=== PATIENT | male | born 1960 | race Asian ===

== ENCOUNTER 2025-03-02 11:23 | Inpatient (IN) | payer OTHER ==
[~2025-03-02] VITALS: Ht 167.6 cm; Wt 70.9 kg
[2025-03-02] MEDS ORDERED: 0.9% SODIUM CHLORIDE 10 ML SYRINGE IVP PRN (12:15)
[2025-03-02 12:43] LABS: PLATELET COUNT (AUTO) 461 K/uL (150-450); RED BLOOD CELL COUNT(AUTO) 3.78 MIL/uL (4.50-5.90); RED CELL DISTRIBUTION WIDTH 16.2 % (11.5-14.5); WHITE BLOOD COUNT (AUTO) 17.7 K/uL (4.5-11.0)
[2025-03-02] MEDS: SODIUM CHLORIDE 0.9% 2,150 ML IV ONE (12:44)
[2025-03-02] MEDS: CefTRIAXone 1 GM/DEXTROSE 50 ML IV ONE (12:49)
[2025-03-02 12:51] LABS: CALCIUM, TOTAL 8.6 mg/dL (8.8-10.5); CREATININE 0.78 mg/dL (0.60-1.30); GLOMERULAR FILTR. RATE CALC > 60 mL/min (>60); GLUCOSE,RANDOM 128 mg/dL (70-110); SODIUM SERUM 135 mmol/L (136-145); UREA NITROGEN, BLOOD 20 mg/dL (7-18)
[2025-03-02 12:59] LABS: TROPONIN I-HIGH SENSITIVITY 11 ng/L (<76)
[2025-03-02 13:00] LABS: APPEARANCE,URINE HAZY (CLEAR); GLUCOSE, URINE (UA) NEGATIVE (NEGATIVE); LEUKOCYTE ESTERASE ,URINE MODERATE (NEGATIVE); NITRATE,URINE NEGATIVE (NEGATIVE); OCCULT BLOOD,URINE LARGE (NEGATIVE); SPECIFIC GRAVITIY, URINE 1.036 (1.003-1.030)
[2025-03-02 13:01] LABS: LACTIC ACID 1.1 mmol/L (0.4-2.0)
[2025-03-02 13:03] LABS: RBC MORPHOLOGY COMMENT NORMAL RBC MORPH
[2025-03-02 13:06] LABS: SQUAMOUS EPITHELIAL CELL,UR Few /LPF (None Seen)
[2025-03-02] MEDS ORDERED: MEMA10TA24 PO (13:23)
[2025-03-02] MEDS ORDERED: OXYC10TA59 PO (13:23)
[2025-03-02] MEDS ORDERED: ACET-3385 PO (13:23)
[2025-03-02] MEDS ORDERED: METO25 PO (13:23)
[2025-03-02] MEDS ORDERED: CEFT1VIA65 IV (13:23)
[2025-03-02] MEDS ORDERED: DONE-51 PO (13:23)
[2025-03-02] MEDS ORDERED: vancomycin IVPB (13:23)
[2025-03-02] MEDS ORDERED: ATOR40TA28 PO (13:23)
[2025-03-02] MEDS ORDERED: INSU100V SQ (13:23)
[2025-03-02] MEDS ORDERED: DOCU-385 PO (13:23)
[2025-03-02 16:06] VITALS: BP 119/65; PULSE 81; RESP 18; O2SAT 97
[2025-03-02] MEDS ORDERED: MORPHINE SULFATE 2 MG/ML SYRINGE IVP PRN (18:30)
[2025-03-02] MEDS ORDERED: HYDROCODONE/ACETAMINOPHEN 5-325 MG TABLET PO PRN (18:30)
[2025-03-02] MEDS ORDERED: MAGNESIUM HYDROXIDE SUSPENSION 30 ML UDCUP PO PRN (18:30)
[2025-03-02] MEDS ORDERED: ONDANSETRON HCL 4 MG/2 ML VIAL IVP PRN (18:30)
[2025-03-02] MEDS ORDERED: IPRATROPIUM BROMIDE 0.5 MG/2.5 ML NEB SOLUTION NEB PRN (18:30)
[2025-03-02] MEDS ORDERED: BISACODYL 10 MG RECTAL RECTAL SUPPOSITORY PR PRN (18:30)
[2025-03-02] MEDS ORDERED: ACETAMINOPHEN 325 MG TABLET PO PRN (18:30)
[2025-03-02] MEDS ORDERED: INSULIN LISPRO 100 UNITS/ML SQ PRN (18:30)
[2025-03-02] MEDS ORDERED: ZOLPIDEM TARTRATE 5 MG TABLET PO PRN (18:30)
[2025-03-02] MEDS ORDERED: ALBUTEROL SULFATE 2.5 MG/0.5 ML NEB SOLUTION NEB PRN (18:30)
[2025-03-02] MEDS ORDERED: DEXTROSE 50%-WATER 25 GM/50 ML SYRINGE IVP PRN (18:30)
[2025-03-02] MEDS ORDERED: MORPHINE SULFATE 4 MG/ML VIAL IVP PRN (18:45)
[2025-03-02] MEDS ORDERED: [UNRECOGNIZED DRUG - OTHER] IV SCH (20:00)
[2025-03-02] MEDS ORDERED: VANCOMYCIN IV SCH (20:00)
[2025-03-02] MEDS ORDERED: SODIUM CHLORIDE 0.9% 500 ML IV ONE (20:20)
[2025-03-02] MEDS: VANCOMYCIN 750 MG/WATER(PEG) 150 ML IV SCH (20:26)
[2025-03-02] MEDS: ACETAMINOPHEN 325 MG TABLET PO SCH (20:41)
[2025-03-02] MEDS: MEMANTINE HCL 10 MG TABLET PO SCH (20:41)
[2025-03-02] MEDS: OxyCODONE HCL 10 MG ER TABLET PO SCH (20:41)
[2025-03-02 21:00] VITALS: BP 136/64; PULSE 93; RESP 20; TEMP 100.4; O2SAT 97
[2025-03-02] MEDS: METOPROLOL TARTRATE 25 MG TABLET PO SCH (21:41)
[2025-03-02 22:41] LABS: GLUCOMETER DEV NAME(LOC) 4E.2; GLUCOSE,POINT OF CARE 122 MG/DL (70-110)
[2025-03-03] MEDS: HEPARIN SODIUM,PORCINE 5,000 UNITS/ML VIAL SQ SCH
[2025-03-03 03:07] VITALS: BP 111/60; PULSE 83; RESP 18; TEMP 98.4; O2SAT 99
[2025-03-03 06:15] LABS: GLUCOMETER DEV NAME(LOC) 4E.2; GLUCOSE,POINT OF CARE 126 MG/DL (70-110)
[2025-03-03 08:58] VITALS: BP 133/66; PULSE 92; RESP 18; TEMP 98.8; O2SAT 100
[2025-03-03] MEDS ORDERED: CefTRIAXone SODIUM 1 GM/VIAL IV SCH (09:00)
[2025-03-03] MEDS: PANTOPRAZOLE SODIUM 40 MG DR TABLET PO SCH (09:12)
[2025-03-03] MEDS: DONEPEZIL HCL 10 MG TABLET PO SCH (09:13)
[2025-03-03] MEDS: ATORVASTATIN CALCIUM 40 MG TABLET PO SCH (09:13)
[2025-03-03 10:13] LABS: CALCIUM, TOTAL 7.8 mg/dL (8.8-10.5); CREATININE 0.62 mg/dL (0.60-1.30); GLOMERULAR FILTR. RATE CALC > 60 mL/min (>60); GLUCOSE,RANDOM 131 mg/dL (70-110); SODIUM SERUM 134 mmol/L (136-145); UREA NITROGEN, BLOOD 10 mg/dL (7-18)
[2025-03-03] MEDS: CefTRIAXone 1 GM/DEXTROSE 50 ML IV SCH (11:00)
[2025-03-03 15:23] VITALS: BP 125/61; PULSE 74; RESP 18; TEMP 98.8; O2SAT 97
[2025-03-03 19:46] LABS: GLUCOMETER DEV NAME(LOC) 4E.2; GLUCOSE,POINT OF CARE 97 MG/DL (70-110)
[2025-03-03 20:31] VITALS: BP 112/63; PULSE 76; RESP 18; TEMP 98.4; O2SAT 99
[2025-03-04 02:56] LABS: GLUCOMETER DEV NAME(LOC) 6S.2; GLUCOSE,POINT OF CARE 110 MG/DL (70-110)
[2025-03-04 05:00] VITALS: BP_SYST 125; BP_SYST 130; BP_DIAS 81; BP_DIAS 83; PULSE 71; PULSE 90; RESP 18; TEMP 98.2; O2SAT 96; O2SAT 97
[2025-03-04 07:24] LABS: CALCIUM, TOTAL 8.2 mg/dL (8.8-10.5); CREATININE 0.49 mg/dL (0.60-1.30); GLOMERULAR FILTR. RATE CALC > 60 mL/min (>60); GLUCOSE,RANDOM 98 mg/dL (70-110); SODIUM SERUM 135 mmol/L (136-145); UREA NITROGEN, BLOOD 11 mg/dL (7-18)
[2025-03-04 08:00] VITALS: BP 133/73; PULSE 76; RESP 18; TEMP 98.2; O2SAT 98
[2025-03-04 10:05] LABS: GLUCOMETER DEV NAME(LOC) 4E.2; GLUCOSE,POINT OF CARE 95 MG/DL (70-110)
[2025-03-04 16:04] LABS: PLATELET COUNT (AUTO) 373 K/uL (150-450); RED BLOOD CELL COUNT(AUTO) 3.26 MIL/uL (4.50-5.90); RED CELL DISTRIBUTION WIDTH 15.8 % (11.5-14.5); WHITE BLOOD COUNT (AUTO) 11.6 K/uL (4.5-11.0)
[2025-03-04 16:14] LABS: CALCIUM, TOTAL 8.0 mg/dL (8.8-10.5); CREATININE 0.55 mg/dL (0.60-1.30); GLOMERULAR FILTR. RATE CALC > 60 mL/min (>60); GLUCOSE,RANDOM 111 mg/dL (70-110); SODIUM SERUM 136 mmol/L (136-145); UREA NITROGEN, BLOOD 11 mg/dL (7-18)
[2025-03-04 16:20] LABS: ASPARTATE AMINOTRANSFERASE 35 U/L (15-37); TOTAL PROTEIN, SERUM 6.8 g/dL (6.4-8.2)
[2025-03-04 16:25] VITALS: BP 139/64; PULSE 72; RESP 19; TEMP 98.4; O2SAT 98
[2025-03-04 17:20] LABS: GLUCOMETER DEV NAME(LOC) 6S.2; GLUCOSE,POINT OF CARE 153 MG/DL (70-110)
[2025-03-04 19:06] LABS: GLUCOMETER DEV NAME(LOC) 4E.2; GLUCOSE,POINT OF CARE 100 MG/DL (70-110)
[2025-03-04 20:25] VITALS: BP 142/88; PULSE 84; RESP 18; TEMP 98.1; O2SAT 95
[2025-03-04 22:16] LABS: GLUCOMETER DEV NAME(LOC) 6N.2C; GLUCOSE,POINT OF CARE 115 MG/DL (70-110)
[2025-03-05 04:41] VITALS: BP 124/79; PULSE 71; RESP 18; TEMP 98.2; O2SAT 96
[2025-03-05 06:36] LABS: GLUCOMETER DEV NAME(LOC) 6N.2C; GLUCOSE,POINT OF CARE 101 MG/DL (70-110)
[2025-03-05 06:38] LABS: CALCIUM, TOTAL 8.2 mg/dL (8.8-10.5); CREATININE 0.50 mg/dL (0.60-1.30); GLOMERULAR FILTR. RATE CALC > 60 mL/min (>60); GLUCOSE,RANDOM 100 mg/dL (70-110); SODIUM SERUM 135 mmol/L (136-145); UREA NITROGEN, BLOOD 8 mg/dL (7-18)
[2025-03-05 08:43] VITALS: BP 119/86; PULSE 77; RESP 18; TEMP 98.4; O2SAT 98
[2025-03-05 12:25] LABS: GLUCOMETER DEV NAME(LOC) 6N.2C; GLUCOSE,POINT OF CARE 121 MG/DL (70-110)
[2025-03-05] MEDS: SODIUM HYPOCHLORITE 0.25% [HALF STRENGTH] 473 ML SOLUTION TP SCH (16:43)
[2025-03-05 16:50] VITALS: BP 133/82; PULSE 72; RESP 18; TEMP 98.2; O2SAT 98
[2025-03-05] MEDS ORDERED: HEPA50009 SQ (18:22)
[2025-03-05] MEDS ORDERED: PANT-31 PO (18:27)
[2025-03-05] MEDS ORDERED: SODI473S21 TP (18:28)
[2025-03-05] MEDS ORDERED: VANC750P15 IV (18:31)
[2025-03-05] MEDS ORDERED: ALBU2.5V39 NEB (18:32)
[2025-03-05] MEDS ORDERED: DEXT-24 IV (18:35)
[2025-03-05] MEDS ORDERED: DEXT50DI6 IV (18:35)
[2025-03-05] MEDS ORDERED: HYDR-4396 PO (18:37)
[2025-03-05] MEDS ORDERED: HYDR-4062 PO (18:40)
[2025-03-05] MEDS ORDERED: INSU100V SQ (18:42)
[2025-03-05] MEDS ORDERED: MAGN-169 PO (18:43)
[2025-03-05] MEDS ORDERED: MORP2CAR IVP (18:45)
[2025-03-05] MEDS ORDERED: ONDA4VIA60 IVP (18:48)
[2025-03-05] MEDS ORDERED: ZOLP-280 PO (18:49)
[2025-03-05] MEDS ORDERED: BISA-151 PO (18:49)
[2025-03-05] MEDS ORDERED: IPRA0.2S49 NEB (18:50)
[2025-03-05 21:46] LABS: GLUCOMETER DEV NAME(LOC) 6N.2C; GLUCOSE,POINT OF CARE 121 MG/DL (70-110)
== END 2025-03-05 22:28 | disposition short-term general hospital (02) | DRG 871 ==
LOC: EMS 11:23 → EDH 13:03 → 6S 14:40 → 4E 03-04 19:19
PROVIDERS: ADMIT Hospitalist; ATTEND Hospitalist
PROC: 05HB33Z Insertion of Infusion Device into Right Basilic Vein, Percutaneous Approach (ICD-10-PCS; principal; 2025-03-04)
PROC: B54MZZA Ultrasonography of Right Upper Extremity Veins, Guidance (ICD-10-PCS; 2025-03-04)
DX: A41.9 Sepsis, unspecified organism (principal); L89.103 Pressure ulcer of unspecified part of back, stage 3; L89.153 Pressure ulcer of sacral region, stage 3; N39.0 Urinary tract infection, site not specified; E11.9 Type 2 diabetes mellitus without complications; F03.90 Unspecified dementia, unspecified severity, without behavioral disturbance, psychotic disturbance, mood disturbance, and anxiety; I10 Essential (primary) hypertension; E78.00 Pure hypercholesterolemia, unspecified; Z92.3 Personal history of irradiation; Z92.21 Personal history of antineoplastic chemotherapy; Z87.891 Personal history of nicotine dependence; Z88.2 Allergy status to sulfonamides; Z88.6 Allergy status to analgesic agent; Z85.89 Personal history of malignant neoplasm of other organs and systems
CPT/HCPCS: 36245; 36569; 51702; 71045; 76937; 80048; 80053; 80202; 81001; 82962; 83605; 83880; 84145; 84484; 85025; 85610; 87040; 87081; 87086; 93005; 96365; 99285; G0378; J0696; J1644; J7040; 36415-L1; 36415-TC; Z7610